=== PATIENT | male | born 1975 | race Caucasian/White ===

== ENCOUNTER 2024-02-03 14:55 | Emergency (ER) | payer OTHER ==
[2024-02-03] MEDS: Diphtheria,Pertussis(Acell),Tetanus Vaccine 0.5 ML Syringe IM ONE (15:31)
[2024-02-03] MEDS: Lidocaine 1% 10 ML MDV INJECT ONE (15:31)
== END 2024-02-03 16:04 | disposition home or self-care (01) ==
LOC: JD.ED 14:55
DX: S61.210A Laceration without foreign body of right index finger without damage to nail, initial encounter (principal); F17.210 Nicotine dependence, cigarettes, uncomplicated; Z23 Encounter for immunization; W26.8XXA Contact with other sharp object(s), not elsewhere classified, initial encounter
CPT/HCPCS: 12002; 90471; 90715; 99282-25; 99283; J3490

== ENCOUNTER 2024-02-12 16:25 | Emergency (ER) | payer OTHER | END 2024-02-12 17:17 | disposition home or self-care (01) | LOC: JD.ED 16:25 | DX: S61.210D Laceration without foreign body of right index finger without damage to nail, subsequent encounter (principal); Z48.02 Encounter for removal of sutures | CPT/HCPCS: 99281 ==